=== PATIENT | female | born 1995 | race American Indian/Alaskan Native ===

== ENCOUNTER 2018-01-20 10:39 | Emergency (ER) | payer OTHER ==
[2018-01-20 11:19] VITALS: RESP 16; O2SAT 100
[2018-01-20] MEDS ORDERED: Tdap Vaccine 0.5 ml Vial (10-64 yrs) IM ONE (11:53)
[2018-01-20] MEDS ORDERED: Povidone Iodine Topical 10% Sol ONE (11:57)
--- NOTE | 2018-01-20 11:57 | ED PDOC ---
Upper Extremity Pain/Injury Time Seen by Provider: 01/20/18 11:11 Chief Complaint (Nursing): Abnormal Skin Integrity Chief Complaint (Provider): Laceration History Per: Patient History/Exam Limitations: no limitations Onset/Duration Of Symptoms: Days (today morning) Current Symptoms Are (Timing): Still Present Additional Complaint(s): Pt. was cutting apples and cut her thumb tip. Has pain L thumb tip. No numbness, tingles, weakness. No pain or injury elsewhere. Has full ROM of thumb and hand. Past Medical History Reviewed: Nursing Documentation, Vital Signs Vital Signs: Last Vital Signs Temp 98.1 F 01/20/18 11:15 Pulse 69 01/20/18 11:15 Resp 16 01/20/18 11:15 BP 131/71 01/20/18 11:15 Pulse Ox 100 01/20/18 11:15 - Medical History PMH: Anxiety Denies: Chronic Kidney Disease - Surgical History Surgical History: No Surg Hx - Family History Family History: States: Unknown Family Hx - Immunization History Hx Tetanus Toxoid Vaccination: No Hx Influenza Vaccination: No Hx Pneumococcal Vaccination: No - Home Medications Home Medications: Ambulatory Orders Medication Instructions Recorded Cephalexin [cephalexin] 500 mg PO TID 7 Days cap 01/20/18 Ibuprofen [Motrin] 600 mg PO TID 7 Days tab 01/20/18 - Allergies Allergies/Adverse Reactions: Allergies Allergy/AdvReac Type Severity Reaction Status Date / Time No Known Allergies Allergy Verified 01/20/18 11:52 Review of Systems Constitutional: Negative for: Weakness Cardiovascular: Negative for: Chest Pain Respiratory: Negative for: Shortness of Breath Musculoskeletal: Positive for: Hand Pain. Negative for: Neck Pain, Shoulder Pain, Arm Pain Skin: Negative for: Rash Neurological: Negative for: Weakness Physical Exam - Reviewed Nursing Documentation Reviewed: Yes Vital Signs Reviewed: Yes - Physical Exam Appears: Positive for: Non-toxic, No Acute Distress Head Exam: Positive for: ATRAUMATIC, NORMAL INSPECTION, NORMOCEPHALIC Neck: Positive for: Normal, Painless ROM, Supple Cardiovascular/Chest: Positive for: Regular Rate, Rhythm Respiratory: Positive for: CNT, Normal Breath Sounds Pulses-Radial (L): 2+ Extremity: Positive for: Normal ROM, Tenderness (L thumb medial tip with 1cm diameter of skin avulsed off; subcutaneous tissue present; tender; no subungal hematoma) Neurologic/Psych: Positive for: Alert, Oriented - ECG O2 Sat by Pulse Oximetry: 100 Pulse Ox Interpretation: Normal - Progress ED Course And Treament: 1200: Spoke with Dr. Ward. States to clean laceration and put surgicell. Will see pt. in 4-5 days at office. No skin flap or laceration area that if fixable. Disposition - Clinical Impression Clinical Impression: Avulsion of skin of thumb - Patient ED Disposition Is Patient to be Admitted: No Counseled Patient/Family Regarding: Diagnosis, Need For Followup - Disposition Referrals: Brayan Ward MD [Staff Provider] - 01/24/18 Disposition: Routine/Home Disposition Time: 12:48 Condition: STABLE Additional Instructions: Return if not better in 3 days. Prescriptions: Cephalexin [cephalexin] 500 mg PO TID 7 Days cap Ibuprofen [Motrin] 600 mg PO TID 7 Days tab Instructions: Wound Care Forms: [facility] (U[place]), [facility] ED School/Work Excuse
[2018-01-20] MEDS ORDERED: Cellulose Hemostat 2X3 Sheet TP ONE (12:30)
[2018-01-20] MEDS ORDERED: Povidone Iodine Oint 10% Foilpak UD ONE (12:55)
[2018-01-20] MEDS ORDERED: Absorbable Gelatin Sponge Size 12-7 ONE (12:55)
[2018-01-20 13:25] VITALS: BP 118/78; PULSE 75; TEMP 97.9
== END 2018-01-20 13:29 | disposition home or self-care (01) ==
LOC: H.ER 10:39
DX: S61.002A Unspecified open wound of left thumb without damage to nail, initial encounter (principal); W26.0XXA Contact with knife, initial encounter; F41.9 Anxiety disorder, unspecified